=== PATIENT | male | born 1995 | race Caucasian/White ===

== ENCOUNTER 2017-11-22 17:16 | Emergency (ER) | payer OTHER ==
[~2017-11-22] VITALS: Ht 195.6 cm; Wt 97.5 kg
[2017-11-22 18:43] LABS: BASOPHIL % 0.2 % (0-2); PLATELET COUNT 207 x10^3mcL (130-400); RED CELL DISTRIBUTION WIDTH 12.9 % (11.5-14.5)
[2017-11-22 18:49] LABS: CARBON DIOXIDE 29.7 mmol/L (21-32); CHLORIDE SERUM 100 mmol/L (98-107); CREATININE SERUM 0.8 mg/dL (0.7-1.3); GFR1 > 60 mL/min; GLUCOSE SERUM 117 mg/dL (74-106); POTASSIUM SERUM 3.9 mmol/L (3.5-5.1); SODIUM SERUM 138 mmol/L (136-145)
[2017-11-22 19:25] VITALS: BP 118/65
== END 2017-11-22 19:25 | disposition home or self-care (01) ==
LOC: ED 17:16
PROVIDERS: Emergency Medicine
DX: S20.212A Contusion of left front wall of thorax, initial encounter (principal); S70.02XA Contusion of left hip, initial encounter; Q87.40 Marfan syndrome, unspecified; Z86.74 Personal history of sudden cardiac arrest; W19.XXXA Unspecified fall, initial encounter; Y93.55 Activity, bike riding; Y99.8 Other external cause status; Y92.89 Other specified places as the place of occurrence of the external cause
CPT/HCPCS: 36415

== ENCOUNTER 2018-03-11 14:00 | Emergency (ER) | payer OTHER ==
[~2018-03-11] VITALS: Ht 195.6 cm; Wt 98.0 kg
[2018-03-11 14:11] VITALS: BP 121/76; Ht 195.6 cm; Wt 98.0 kg
== END 2018-03-11 15:55 | disposition home or self-care (01) ==
LOC: ED 14:00
DX: L08.89 Other specified local infections of the skin and subcutaneous tissue (principal)

== ENCOUNTER 2020-01-13 22:43 | Emergency (ER) | payer MEDICAID ==
[~2020-01-13] VITALS: Ht 195.6 cm; Wt 97.1 kg
[2020-01-13 22:51] VITALS: Ht 195.6 cm; Wt 97.1 kg
[2020-01-14 00:42] VITALS: BP 122/71
== END 2020-01-14 00:42 | disposition home or self-care (01) ==
LOC: ED 22:43
DX: S52.124A Nondisplaced fracture of head of right radius, initial encounter for closed fracture (principal); S93.401A Sprain of unspecified ligament of right ankle, initial encounter; M25.531 Pain in right wrist; V00.831A Fall from motorized mobility scooter, initial encounter; Y93.I9 Activity, other involving external motion; Y92.488 Other paved roadways as the place of occurrence of the external cause; Y99.8 Other external cause status
CPT/HCPCS: J1885

== ENCOUNTER 2020-05-02 19:48 | Emergency (ER) | payer OTHER ==
[~2020-05-02] VITALS: Ht 195.6 cm; Wt 99.8 kg
[2020-05-02 20:01] VITALS: Ht 195.6 cm; Wt 99.8 kg
[2020-05-02 21:52] LABS: BASOPHIL % 0.6 % (0-2); PLATELET COUNT 210 x10^3mcL (130-400); RED CELL DISTRIBUTION WIDTH 12.2 % (11.5-14.5)
[2020-05-02 22:19] LABS: CALCIUM 8.9 mg/dL (8.5-10.1); CARBON DIOXIDE 30.2 mmol/L (21-32); CHLORIDE SERUM 100 mmol/L (98-107); GFR1 > 60 mL/min; GLUCOSE SERUM 96 mg/dL (74-106); POTASSIUM SERUM 4.1 mmol/L (3.5-5.1); SODIUM SERUM 137 mmol/L (136-145)
[2020-05-02 22:23] LABS: ALBUMIN 3.8 g/dL (3.4-5.0); ALKALINE PHOSPHATASE 107 U/L (46-116); ALT/SGPT 45 U/L (16-63); AST/SGOT 8 U/L (15-37); BILIRUBIN TOTAL 0.21 mg/dL (0.20-1.00); TOTAL PROTEIN, SERUM 7.7 g/dL (6.4-8.2)
[2020-05-02 22:51] VITALS: BP 112/73
== END 2020-05-02 22:51 | disposition home or self-care (01) ==
LOC: ED 19:48
PROVIDERS: Emergency Medicine
DX: S76.012A Strain of muscle, fascia and tendon of left hip, initial encounter (principal); R07.89 Other chest pain; X58.XXXA Exposure to other specified factors, initial encounter; Y93.89 Activity, other specified; Y92.89 Other specified places as the place of occurrence of the external cause; Y99.8 Other external cause status
CPT/HCPCS: 83880; Q0092

== ENCOUNTER 2020-07-22 10:54 | Emergency (ER) | payer OTHER ==
[~2020-07-22] VITALS: Ht 195.6 cm; Wt 101.7 kg
[2020-07-22 10:58] VITALS: Ht 195.6 cm; Wt 101.7 kg
[2020-07-22 11:39] LABS: BASOPHIL % 0.8 % (0-2); RED CELL DISTRIBUTION WIDTH 12.4 % (11.5-14.5)
[2020-07-22 11:50] LABS: CALCIUM 9.1 mg/dL (8.5-10.1); CARBON DIOXIDE 23.5 mmol/L (21-32); CHLORIDE SERUM 100 mmol/L (98-107); CREATININE SERUM 0.9 mg/dL (0.7-1.3); GFR1 > 60 mL/min; GLUCOSE SERUM 113 mg/dL (74-106); POTASSIUM SERUM 3.8 mmol/L (3.5-5.1); SODIUM SERUM 137 mmol/L (136-145)
[2020-07-22 11:54] LABS: ALBUMIN 4.3 g/dL (3.4-5.0); ALKALINE PHOSPHATASE 109 U/L (46-116); ALT/SGPT 45 U/L (16-63); AST/SGOT 24 U/L (15-37); BILIRUBIN TOTAL 0.34 mg/dL (0.20-1.00); TOTAL PROTEIN, SERUM 7.9 g/dL (6.4-8.2)
[2020-07-22 12:27] VITALS: BP 112/66
[2020-07-22 13:30] LABS: PLATELET COUNT 207 x10^3mcL (130-400)
== END 2020-07-22 14:00 | disposition home or self-care (01) ==
LOC: ED 10:54
PROVIDERS: Emergency Medicine
DX: R00.2 Palpitations (principal); M79.10 Myalgia, unspecified site; Z98.890 Other specified postprocedural states